=== PATIENT | female | born 1970 | race Two or more races ===

== ENCOUNTER 2022-11-07 17:18 | Emergency (ER) | payer OTHER ==
[~2022-11-07] VITALS: Ht 165.1 cm; Wt 75.0 kg
[2022-11-07 17:22] VITALS: BP 155/85; PULSE 80; RESP 16; TEMP 98.2
[2022-11-10 03:06] LABS: HEPATITIS A ANTIBODY IGM Negative (Negative); HEPATITIS B CORE IGM Negative (Negative); HEPATITIS C AB (EIA) Non Reactive (Non Reactive); HIV 1-2 SCREEN 4TH GEN W/RFLX Non Reactive (Non Reactive)
== END 2022-11-07 23:25 | disposition home or self-care (01) ==
LOC: EMS 17:25
DX: S61.032A Puncture wound without foreign body of left thumb without damage to nail, initial encounter (principal); W46.1XXA Contact with contaminated hypodermic needle, initial encounter; Y93.89 Activity, other specified; Y92.59 Other trade areas as the place of occurrence of the external cause; Y99.0 Civilian activity done for income or pay
CPT/HCPCS: 80074; 87389; 99281; 99283